=== PATIENT | male | born 1960 | race Caucasian/White ===

== ENCOUNTER 2017-05-03 08:00 | Outpatient (CLI) | payer BC | END 2017-05-03 08:01 | disposition home or self-care (01) | LOC: LAB.F 08:00 | PROVIDERS: ATTEND Internal Medicine | DX: E03.9 Hypothyroidism, unspecified (principal) | CPT/HCPCS: 36415; 84443 ==

== ENCOUNTER 2017-07-04 08:23 | Outpatient (CLI) | payer BC | END 2017-07-04 08:24 | disposition home or self-care (01) | LOC: LAB.F 08:23 | PROVIDERS: ATTEND Internal Medicine | DX: E03.9 Hypothyroidism, unspecified (principal) | CPT/HCPCS: 36415; 84443 ==

== ENCOUNTER 2018-04-05 07:19 | Outpatient (CLI) | payer BC ==
[2018-04-05 11:49] LABS: BASOPHILS # (AUTO) 0.1 10^3/uL (0.0-0.1); BASOPHILS % (AUTO) 0.8 %; EOSINOPHILS # (AUTO) 0.2 10^3/uL (0.0-0.7); EOSINOPHILS % (AUTO) 3.2 %; HGB - HEMOGLOBIN 14.2 g/dL (14.0-18.0); LYMPHOCYTES # (AUTO) 2.1 10^3/uL (1.5-3.5); LYMPHOCYTES % (AUTO) 29.2 %; MEAN CORPUSCULAR HEMOGLOBIN 30.3 pg (27.0-31.0); MEAN CORPUSCULAR HGB CONC 32.9 g/dL (32.0-36.0); MEAN CORPUSCULAR VOLUME 92.1 fL (80.0-94.0); MEAN PLATELET VOLUME 10.1 fL (7.4-11.4); MONOCYTES # (AUTO) 0.8 10^3/uL (0.0-1.0); MONOCYTES % (AUTO) 10.9 %; NEUTROPHILS % (AUTO) 55.9 %; PLT - PLATELET COUNT 228 10^3/uL (130-450); RED BLOOD COUNT 4.67 10^6/uL (4.70-6.10); RED CELL DISTRIBUTION WIDTH 13.7 % (12.0-15.0); WHITE BLOOD COUNT 7.2 x10^3/uL (4.8-10.8)
[2018-04-05 12:14] LABS: ALBUMIN 3.8 g/dL (3.2-5.5); ALBUMIN/GLOBULIN RATIO 1.2 (1.0-2.2); ALKALINE PHOSPHATASE 47 IU/L (42-121); ALT ALANINE AMINOTRANSFERASE 23 IU/L (10-60); AST ASPARTATE AMINOTRANSFERASE 24 IU/L (10-42); BILIRUBIN,TOTAL 0.8 mg/dL (0.2-1.0); BUN - BLOOD UREA NITROGEN 21 mg/dL (6-20); CALCIUM 8.9 mg/dL (8.5-10.3); CARBON DIOXIDE - CO2 25 mmol/L (21-32); CHLORIDE 105 mmol/L (101-111); CHOL/HDL RATIO 4.2 (<5.0); CHOLESTEROL 226 mg/dL; CREATININE 0.9 mg/dL (0.6-1.2); GFR - MDRD 86 (>89); GLUCOSE 96 mg/dL (70-100); HDL CHOLESTEROL 54 mg/dL; LDL CHOLESTEROL,CALCULATED 157 mg/dL; LDL/HDL RATIO 2.9 (<3.6); SODIUM 134 mmol/L (135-145); TOTAL PROTEIN 6.9 g/dL (6.7-8.2); VLDL CHOLESTEROL 15 mg/dL
== END 2018-04-05 07:20 | disposition home or self-care (01) ==
LOC: LAB.F 07:19
PROVIDERS: ATTEND Internal Medicine
DX: E03.9 Hypothyroidism, unspecified (principal); E78.00 Pure hypercholesterolemia, unspecified; R97.20 Elevated prostate specific antigen [PSA]
CPT/HCPCS: 36415; 80053; 80061; 83721; 84153; 84443; 85025

== ENCOUNTER 2019-04-13 18:35 | Emergency (ER) | payer BC ==
[2019-04-13 18:43] VITALS: BP 144/78
--- NOTE | 2019-04-13 19:15 | ED Physician Documentation ---
PD HPI UPPER EXT INJURY - Stated complaint Stated Complaint: L FINGER INJ - Chief complaint Chief Complaint: Ext Problem - History obtained from History obtained from: Patient - History of Present Illness Location: Left (He was [place] running about an hour ago and slipped and impacted his left hand into a tree and has pain of the left fifth finger. No other injuries.) Review of Systems Constitutional: reports: Reviewed and negative Nose: reports: Reviewed and negative Throat: reports: Reviewed and negative PD PAST MEDICAL HISTORY - Past Medical History Endocrine/Autoimmune: HyPOthyroidism - Allergies Allergies/Adverse Reactions: Allergies Allergy/AdvReac Type Severity Reaction Status Date / Time No Known Drug Allergies Allergy Verified 04/13/19 18:42 - Social History Does the pt smoke?: No Smoking Status: Never smoker Does the pt have substance abuse?: No PD ED PE NORMAL - Vitals Vital signs reviewed: Yes - General General: Alert and oriented X 3, No acute distress - Derm Derm: Normal color, Warm and dry - Extremities Extremities: Other (TTP L 5th MT without deformity or loss of saccade) - Neuro Neuro: Alert and oriented X 3, Normal speech Results - Vitals Vitals: Vital Signs - 24 hr 04/13/19 18:37 Temperature 37.0 C Heart Rate 80 Respiratory 16 Rate Blood Pressure 144/78 H O2 Saturation 99 - Rads (name of study) L hand Radiology: EMP read contemporaneously (midshaft 5th frx) Procedures - Splint (location) L hand Splint applied by: Physician Type of splint: Fiberglass, Short arm, Ulnar gutter Other: Patient tolerated well, No complications, Neurovascular intact Departure - Departure Disposition: 01 Home, Self Care Clinical Impression: Fracture of fifth metacarpal bone of left hand Qualifiers: Encounter type: initial encounter Fracture type: closed Metacarpal location: shaft Fracture alignment: displaced Qualified Code(s): S62.327A - Displaced fracture of shaft of fifth metacarpal bone, left hand, initial encounter for closed fracture Condition: Good Record reviewed to determine appropriate education?: Yes Instructions: ED Fx Hand Closed Follow-Up: [facility] [Provider Group] - Within 1 week
--- NOTE | 2019-04-13 20:04 | XRAY Report ---
Reason: finger inj Procedure Date: 04/13/2019 Accession Number: [id number] / [id number] Procedure: XR - Finger(s) LT CPT Code: FULL RESULT: EXAM: LEFT FIFTH AND FOURTH DIGIT RADIOGRAPHY EXAM DATE: 04/13/2019 07:05 PM. CLINICAL HISTORY: Finger injury. Fall. Left hand pain and loss of range of motion to fourth and fifth digit. COMPARISON: None. TECHNIQUE: 3 views. FINDINGS: Bones: Acute oblique left fifth metatarsal diaphyseal fracture with overlap and mild medial displacement, and there appears to be moderate volar displacement of the distal fracture fragment on the lateral view but this evaluation is limited due to overlapping digits. Adjacent soft tissue swelling. No other acute fractures are seen. Small metallic density projects over the first proximal phalanx seen only on the PA view, could represent metallic foreign body versus surgical clips versus outside of the patient. Correlate clinically. Joints: No Dislocation. Moderate to severe scaphoid trapezium/trapezoid joint space narrowing with moderate sclerosis. IMPRESSION: Acute oblique left fifth metatarsal diaphyseal fracture with overlap and mild medial displacement, and there appears to be moderate volar displacement of the distal fracture fragment on the lateral view but this evaluation is limited due to overlapping digits. Adjacent soft tissue swelling. See above. RADIA
== END 2019-04-13 20:03 | disposition home or self-care (01) ==
LOC: ED 18:35
DX: S92.352A Displaced fracture of fifth metatarsal bone, left foot, initial encounter for closed fracture (principal); W22.09XA Striking against other stationary object, initial encounter; Y93.02 Activity, running
CPT/HCPCS: 29125; 73140; 99282; 99283

== ENCOUNTER 2019-11-04 08:40 | Outpatient (CLI) | payer BC ==
[2019-11-04 18:27] LABS: ALBUMIN 4.2 g/dL (3.2-5.5); ALBUMIN/GLOBULIN RATIO 1.6 (1.0-2.2); ALKALINE PHOSPHATASE 36 IU/L (42-121); ALT ALANINE AMINOTRANSFERASE 21 IU/L (10-60); AST ASPARTATE AMINOTRANSFERASE 24 IU/L (10-42); BUN - BLOOD UREA NITROGEN 19 mg/dL (6-20); CALCIUM 9.1 mg/dL (8.5-10.3); CARBON DIOXIDE - CO2 24 mmol/L (21-32); CHLORIDE 102 mmol/L (101-111); CHOL/HDL RATIO 4.8 (<5.0); CHOLESTEROL 261 mg/dL; GFR - MDRD 76 (>89); GLUCOSE 89 mg/dL (70-100); HDL CHOLESTEROL 54 mg/dL; LDL CHOLESTEROL,CALCULATED 191 mg/dL; LDL/HDL RATIO 3.5 (<3.6); SODIUM 135 mmol/L (135-145); TOTAL PROTEIN 6.9 g/dL (6.7-8.2); VLDL CHOLESTEROL 16 mg/dL
== END 2019-11-04 08:41 | disposition home or self-care (01) ==
LOC: LAB.S 08:40
PROVIDERS: ATTEND Internal Medicine
DX: E78.5 Hyperlipidemia, unspecified (principal); R97.20 Elevated prostate specific antigen [PSA]; E03.9 Hypothyroidism, unspecified
CPT/HCPCS: 36415; 80053; 80061; 83721; 84153; 84443

== ENCOUNTER 2020-04-09 07:04 | Outpatient (CLI) | payer BC ==
[2020-04-09 16:30] LABS: ALBUMIN 4.4 g/dL (3.2-5.5); ALBUMIN/GLOBULIN RATIO 1.6 (1.0-2.2); ALKALINE PHOSPHATASE 45 IU/L (42-121); ALT ALANINE AMINOTRANSFERASE 29 IU/L (10-60); AST ASPARTATE AMINOTRANSFERASE 24 IU/L (10-42); BILIRUBIN,TOTAL 0.6 mg/dL (0.2-1.0); BUN - BLOOD UREA NITROGEN 20 mg/dL (6-20); CALCIUM 8.9 mg/dL (8.5-10.3); CARBON DIOXIDE - CO2 24 mmol/L (21-32); CHLORIDE 105 mmol/L (101-111); CHOL/HDL RATIO 3.1 (<5.0); CHOLESTEROL 186 mg/dL; GLUCOSE 92 mg/dL (70-100); HDL CHOLESTEROL 60 mg/dL; LDL CHOLESTEROL,CALCULATED 109 mg/dL; LDL/HDL RATIO 1.8 (<3.6); SODIUM 136 mmol/L (135-145); TOTAL PROTEIN 7.1 g/dL (6.7-8.2); VLDL CHOLESTEROL 17 mg/dL
== END 2020-04-09 07:05 | disposition home or self-care (01) ==
LOC: LAB.S 07:04
PROVIDERS: ATTEND Internal Medicine
DX: E78.5 Hyperlipidemia, unspecified (principal)
CPT/HCPCS: 36415; 80053; 80061; 83721

== ENCOUNTER 2020-10-24 09:10 | Outpatient (CLI) | payer BC ==
[2020-10-24 15:26] LABS: BASOPHILS # (AUTO) 0.1 10^3/uL (0.0-0.1); BASOPHILS % (AUTO) 0.9 %; EOSINOPHILS # (AUTO) 0.1 10^3/uL (0.0-0.7); EOSINOPHILS % (AUTO) 1.8 %; LYMPHOCYTES % (AUTO) 26.1 %; MEAN CORPUSCULAR HEMOGLOBIN 30.3 pg (27.0-31.0); MEAN CORPUSCULAR HGB CONC 32.3 g/dL (32.0-36.0); MEAN CORPUSCULAR VOLUME 93.7 fL (80.0-94.0); MEAN PLATELET VOLUME 12.2 fL (7.4-11.4); MONOCYTES # (AUTO) 0.7 10^3/uL (0.0-1.0); MONOCYTES % (AUTO) 9.4 %; NEUTROPHILS # (AUTO) 4.8 10^3/uL (1.5-6.6); NEUTROPHILS % (AUTO) 61.5 %; PLT - PLATELET COUNT 209 10^3/uL (130-450); RED BLOOD COUNT 4.95 10^6/uL (4.70-6.10); WHITE BLOOD COUNT 7.7 x10^3/uL (4.8-10.8)
[2020-10-24 15:33] LABS: ALBUMIN 4.6 g/dL (3.2-5.5); ALBUMIN/GLOBULIN RATIO 1.6 (1.0-2.2); ALKALINE PHOSPHATASE 48 IU/L (42-121); ALT ALANINE AMINOTRANSFERASE 31 IU/L (10-60); AST ASPARTATE AMINOTRANSFERASE 26 IU/L (10-42); BUN - BLOOD UREA NITROGEN 16 mg/dL (6-20); CALCIUM 9.7 mg/dL (8.5-10.3); CARBON DIOXIDE - CO2 26 mmol/L (21-32); CHLORIDE 102 mmol/L (101-111); CHOL/HDL RATIO 3.2 (<5.0); CHOLESTEROL 207 mg/dL; CREATININE 0.9 mg/dL (0.6-1.2); GLUCOSE 89 mg/dL (70-100); HDL CHOLESTEROL 64 mg/dL; LDL CHOLESTEROL,CALCULATED 124 mg/dL; LDL/HDL RATIO 1.9 (<3.6); SODIUM 137 mmol/L (135-145); TOTAL PROTEIN 7.4 g/dL (6.7-8.2); VLDL CHOLESTEROL 19 mg/dL
[2020-10-24 16:33] LABS: FREE T4 (FREE THYROXINE) 1.23 ng/dL (0.58-1.64)
--- OUTSIDE RECORDS SUMMARY | 2020-10-28 01:50 | EXTERNAL MEDICAL SUMMARY RPT | Continuity of Care Document ---
:1960 Demographics Phone Unavailable Preferred Language Tunisian Marital Status Unknown [employer]ar[employer] Affiliation Unknown Race Unknown Ethnic Group Unknown Author Organization [facility] Address [address] [place] [address] Phone Care Team Providers Name Role Phone MD Unavailable Unavailable [place] Unavailable Unavailable FACP Unavailable Unavailable Problems date description facility 2020-09-14 00:00:00 [facility] 2020-09-14 00:00:00 Health-related behavior [facility] Primary [facility] 2020-09-14 00:00:00 Concussion without loss of [facility] consciousness, initial encounter [facility] 2020-09-14 00:00:00 Concussion [facility] 2020-09-14 00:00:00 Tobacco use and exposure [facility] 2020-09-14 00:00[facility] 2020-09-14 00:00:00 [facility] use [facility] 2020-09[facility]14 00:00:00 Tobacco [facility] 2020-09-30 00:00:00 TSH WITH REFLEX TO FT4 [facility] 2020-09-30 00:00:00 Other specified cardiac [facility] Primary Care dysrhythmias [facility] 2020-09-30 00:00:00 [facility]ostatic hypotension [facility] 2020-09-30 00:00:00 Headache [facility] 2020-09-30 00:00:00 Screening for malignant [facility] Primary [facility] neoplasms of prostate [facility] 2020-09-30 00:00:00 COMPREHENSIVE METABOLIC PANEL [facility] 2020-09-30 00:00:00 LIPIDS SCREEN [facility] 2020-09-30 00:00:00 PSA, SCREENING [facility] 2020-09-30 00:00:00 CBC W/Diff[facility]Plt [facility] 2020-09-30 00:00:00 [facility]traumatic [facility] unspecified, not intractable [facility] 2020-09-30 00:00:00 [facility], [facility] 2020-09-30 00:00:[facility]00 [facility]counter for screening for [facility] malignant neoplasm of prostate [facility] 2020-09-30 00:00:00 [facility] 2020-09-30 00:00:00 [facility] 2020-09-30 00:00:00 Syncope due to orthostatic [facility] hypotension [facility] 2020-09-30 00:00:00 Feeling down, depressed, or [facility] hopeless? [facility] 2020-09-30 00:00:00 [facility] malignant [facility] neoplasm of prostate [facility] 2020-09-30 00:00:00 [facility]cardia [facility] 2020-09-30 00:00:00 Posttraumatic headache [facility] 2020-09-30 00:00:00 Patient Health Questionnaire [facility] item (PHQ2) total score [facility] 2020-09-30 00:00:00 Tobacco smoking status NHIS [facility] 2020-10-24 09:10 HYPOTHYROIDISM, UNSPECIFIED [facility] 2020-10-24 09:10 HYPERLIPIDEMIA, UNSPECIFIED [facility] 2020-10-24 09:10 SYNCOPE AND COLLAPSE [facility] 2020-10-24 09:10 ENCOUNTER FOR SCREENING FOR [facility] MALIGNANT NEOPLASM OF PROSTATE Allergies date description facility No Known Drug Allergies [facility] Procedures date description facility 2020-09-30 00:00:00 TSH WITH REFLEX TO FT4 [facility] date description facility 2020-09-30 00:00:00 COMPREHENSIVE METABOLIC PANEL [facility] Primary [facility] date description facility 2020-09-30 00:00:00 [facility]EN [facility] date description facility 2020-09-30 00:00:00 PSA, [facility]CREENING [facility] date description facility 2020-09-30 00:00:00 CBC W/Diff/Plt [facility] date description facility 2020-09-30 00:00:00 [facility] Results Social History date description facility 2020-09-14 00:00:00 Never smoker [facility] date description facility 2020-09-30 00:00:00 Never smoker [facility] Social History date description facility 2020-09-14 00:00:00 Never smoker [facility] date description facility 2020-09-30 00:00:00 Never smoker [facility] date description facility [id number]
== END 2020-10-24 09:11 | disposition home or self-care (01) ==
LOC: LAB.S 09:10
PROVIDERS: ATTEND Internal Medicine
DX: R55 Syncope and collapse (principal); E78.5 Hyperlipidemia, unspecified; Z12.5 Encounter for screening for malignant neoplasm of prostate; E03.9 Hypothyroidism, unspecified
CPT/HCPCS: 36415; 80053; 80061; 83721; 84153; 84439; 84443; 85025

== ENCOUNTER 2020-11-19 07:46 | Outpatient (CLI) | payer BC | END 2020-11-19 07:47 | disposition home or self-care (01) | LOC: DI 07:46 | PROVIDERS: ATTEND Specialist | DX: R55 Syncope and collapse (principal); E78.49 Other hyperlipidemia | CPT/HCPCS: 93306 ==

== ENCOUNTER 2020-12-29 13:24 | Outpatient (CLI) | payer BC ==
[2020-12-29 20:33] LABS: THYROID STIMULATING HORMONE 4.93 uIU/mL (0.34-5.60)
== END 2020-12-29 13:25 | disposition home or self-care (01) ==
LOC: LAB.S 13:24
PROVIDERS: ATTEND Internal Medicine
DX: E03.9 Hypothyroidism, unspecified (principal)
CPT/HCPCS: 36415; 84443

== ENCOUNTER 2021-05-19 07:47 | Outpatient (CLI) | payer BC ==
[2021-05-19 14:56] LABS: BASOPHILS # (AUTO) 0.1 10^3/uL (0.0-0.1); BASOPHILS % (AUTO) 0.6 %; EOSINOPHILS # (AUTO) 0.2 10^3/uL (0.0-0.7); EOSINOPHILS % (AUTO) 2.3 %; HGB - HEMOGLOBIN 14.5 g/dL (14.0-18.0); LYMPHOCYTES # (AUTO) 2.6 10^3/uL (1.5-3.5); LYMPHOCYTES % (AUTO) 31.8 %; MEAN CORPUSCULAR HEMOGLOBIN 29.9 pg (27.0-31.0); MEAN CORPUSCULAR HGB CONC 32.2 g/dL (32.0-36.0); MEAN CORPUSCULAR VOLUME 92.8 fL (80.0-94.0); MEAN PLATELET VOLUME 11.7 fL (7.4-11.4); MONOCYTES # (AUTO) 0.8 10^3/uL (0.0-1.0); MONOCYTES % (AUTO) 9.6 %; NEUTROPHILS # (AUTO) 4.5 10^3/uL (1.5-6.6); NEUTROPHILS % (AUTO) 55.3 %; PLT - PLATELET COUNT 235 10^3/uL (130-450); RED BLOOD COUNT 4.85 10^6/uL (4.70-6.10); WHITE BLOOD COUNT 8.1 x10^3/uL (4.8-10.8)
[2021-05-19 15:15] LABS: ALBUMIN 4.3 g/dL (3.2-5.5); ALBUMIN/GLOBULIN RATIO 1.4 (1.0-2.2); ALKALINE PHOSPHATASE 43 IU/L (42-121); ALT ALANINE AMINOTRANSFERASE 23 IU/L (10-60); AST ASPARTATE AMINOTRANSFERASE 22 IU/L (10-42); BILIRUBIN,TOTAL 0.9 mg/dL (0.2-1.0); BUN - BLOOD UREA NITROGEN 18 mg/dL (6-20); CALCIUM 9.2 mg/dL (8.5-10.3); CARBON DIOXIDE - CO2 25 mmol/L (21-32); CHLORIDE 101 mmol/L (101-111); CHOL/HDL RATIO 3.4 (<5.0); CHOLESTEROL 192 mg/dL; CREATININE 0.8 mg/dL (0.6-1.2); GFR - MDRD 98 (>89); GLUCOSE 99 mg/dL (70-100); HDL CHOLESTEROL 57 mg/dL; LDL CHOLESTEROL,CALCULATED 118 mg/dL; LDL/HDL RATIO 2.1 (<3.6); POTASSIUM 4.2 mmol/L (3.5-5.0); SODIUM 135 mmol/L (135-145); TOTAL PROTEIN 7.3 g/dL (6.7-8.2); TRIGLYCERIDES 85 mg/dL; VLDL CHOLESTEROL 17 mg/dL
[2021-05-19 15:33] LABS: THYROID STIMULATING HORMONE 2.76 uIU/mL (0.34-5.60)
== END 2021-05-19 07:48 | disposition home or self-care (01) ==
LOC: LAB.S 07:47
PROVIDERS: ATTEND Internal Medicine
DX: E78.5 Hyperlipidemia, unspecified (principal); Z79.899 Other long term (current) drug therapy; R97.20 Elevated prostate specific antigen [PSA]; E03.9 Hypothyroidism, unspecified
CPT/HCPCS: 36415; 80053; 80061; 83721; 84153; 84443; 85025

== ENCOUNTER 2021-11-10 07:22 | Outpatient (CLI) | payer BC ==
[2021-11-10 15:00] LABS: BASOPHILS # (AUTO) 0.1 10^3/uL (0.0-0.1); BASOPHILS % (AUTO) 0.9 %; EOSINOPHILS # (AUTO) 0.2 10^3/uL (0.0-0.7); EOSINOPHILS % (AUTO) 2.9 %; HCT - HEMATOCRIT 39.4 % (42.0-52.0); LYMPHOCYTES # (AUTO) 2.6 10^3/uL (1.5-3.5); LYMPHOCYTES % (AUTO) 37.7 %; MEAN CORPUSCULAR HEMOGLOBIN 30.2 pg (27.0-31.0); MEAN CORPUSCULAR VOLUME 91.4 fL (80.0-94.0); MEAN PLATELET VOLUME 12.5 fL (7.4-11.4); MONOCYTES # (AUTO) 0.6 10^3/uL (0.0-1.0); NEUTROPHILS # (AUTO) 3.4 10^3/uL (1.5-6.6); NEUTROPHILS % (AUTO) 49.1 %; PLT - PLATELET COUNT 226 10^3/uL (130-450); RED BLOOD COUNT 4.31 10^6/uL (4.70-6.10); RED CELL DISTRIBUTION WIDTH 13.4 % (12.0-15.0); WHITE BLOOD COUNT 6.9 x10^3/uL (4.8-10.8)
[2021-11-10 15:22] LABS: ALBUMIN 3.9 g/dL (3.2-5.5); ALBUMIN/GLOBULIN RATIO 1.5 (1.0-2.2); ALKALINE PHOSPHATASE 41 IU/L (42-121); ALT ALANINE AMINOTRANSFERASE 22 IU/L (10-60); AST ASPARTATE AMINOTRANSFERASE 25 IU/L (10-42); BILIRUBIN,TOTAL 0.6 mg/dL (0.2-1.0); BUN - BLOOD UREA NITROGEN 19 mg/dL (6-20); CALCIUM 8.9 mg/dL (8.5-10.3); CARBON DIOXIDE - CO2 25 mmol/L (21-32); CHLORIDE 104 mmol/L (101-111); CHOL/HDL RATIO 2.9 (<5.0); CHOLESTEROL 168 mg/dL; CREATININE 0.8 mg/dL (0.6-1.2); GFR - MDRD 98 (>89); GLUCOSE 91 mg/dL (70-100); HDL CHOLESTEROL 58 mg/dL; LDL CHOLESTEROL,CALCULATED 101 mg/dL; LDL/HDL RATIO 1.7 (<3.6); POTASSIUM 4.5 mmol/L (3.5-5.0); SODIUM 137 mmol/L (135-145); TOTAL PROTEIN 6.5 g/dL (6.7-8.2); TRIGLYCERIDES 47 mg/dL; VLDL CHOLESTEROL 9 mg/dL
[2021-11-10 15:53] LABS: THYROID STIMULATING HORMONE 4.99 uIU/mL (0.34-5.60)
== END 2021-11-10 07:23 | disposition home or self-care (01) ==
LOC: LAB.S 07:22
PROVIDERS: ATTEND Internal Medicine
DX: E78.5 Hyperlipidemia, unspecified (principal); E03.9 Hypothyroidism, unspecified; Z79.899 Other long term (current) drug therapy
CPT/HCPCS: 36415; 80053; 80061; 83721; 84443; 85025

== ENCOUNTER 2022-02-11 07:26 | Outpatient (CLI) | payer BC ==
[2022-02-11 15:34] LABS: ALBUMIN 3.8 g/dL (3.2-5.5); ALBUMIN/GLOBULIN RATIO 1.5 (1.0-2.2); BILIRUBIN,TOTAL 0.5 mg/dL (0.2-1.0); CALCIUM 9.1 mg/dL (8.5-10.3); CREATININE 0.8 mg/dL (0.6-1.2); POTASSIUM 4.5 mmol/L (3.5-5.0); TOTAL PROTEIN 6.4 g/dL (6.7-8.2)
== END 2022-02-11 07:27 | disposition home or self-care (01) ==
LOC: LAB.S 07:26
PROVIDERS: ATTEND Internal Medicine Cardiovascular Disease
DX: E78.49 Other hyperlipidemia (principal)
CPT/HCPCS: 36415; 80053; 82550; 83704

== ENCOUNTER 2022-02-18 07:30 | Outpatient (CLI) | payer BC ==
[2022-02-22 10:55] LABS: HDL-P (TOTAL) 41.7 umol/L (>=30.5); LDL SIZE 21.7 nm (>20.5); LDL-P 816 nmol/L (<1000); LP-INSULIN RESISTANCE SCORE <25 (<=45); SMALL LDL-P 350 nmol/L (<=527)
== END 2022-02-18 07:31 | disposition home or self-care (01) ==
LOC: LAB.S 07:30
PROVIDERS: ATTEND Internal Medicine Cardiovascular Disease
DX: E78.49 Other hyperlipidemia (principal)
CPT/HCPCS: 83704

== ENCOUNTER 2022-11-16 09:13 | Outpatient (CLI) | payer BC ==
[2022-11-16 15:42] LABS: THYROID STIMULATING HORMONE 3.85 uIU/mL (0.34-5.60)
== END 2022-11-16 09:14 | disposition home or self-care (01) ==
LOC: LAB.S 09:13
PROVIDERS: ATTEND Registered Nurse
DX: E03.9 Hypothyroidism, unspecified (principal); Z12.5 Encounter for screening for malignant neoplasm of prostate
CPT/HCPCS: 36415; 84153; 84443

== ENCOUNTER 2023-06-20 08:06 | Outpatient (CLI) | payer BC ==
[2023-06-20 14:48] LABS: ALT ALANINE AMINOTRANSFERASE 20 IU/L (10-60); CHOL/HDL RATIO 2.2 (<5.0); CHOLESTEROL 148 mg/dL; HDL CHOLESTEROL 67 mg/dL; LDL CHOLESTEROL,CALCULATED 71 mg/dL; LDL/HDL RATIO 1.1 (<3.6); TRIGLYCERIDES 49 mg/dL (48-352); VLDL CHOLESTEROL 10 mg/dL
== END 2023-06-20 08:07 | disposition home or self-care (01) ==
LOC: LAB.S 08:06
PROVIDERS: ATTEND Registered Nurse
DX: R97.20 Elevated prostate specific antigen [PSA] (principal); E78.00 Pure hypercholesterolemia, unspecified; Z82.49 Family history of ischemic heart disease and other diseases of the circulatory system; I25.10 Atherosclerotic heart disease of native coronary artery without angina pectoris
CPT/HCPCS: 36415; 80061; 83721; 84153; 84460

== ENCOUNTER 2024-01-16 09:52 | Outpatient (CLI) | payer MEDICARE, BC ==
[2024-01-16 14:44] LABS: BASOPHILS # (AUTO) 0.1 10^3/uL (0.0-0.1); BASOPHILS % (AUTO) 0.7 %; EOSINOPHILS # (AUTO) 0.1 10^3/uL (0.0-0.7); EOSINOPHILS % (AUTO) 1.7 %; HCT - HEMATOCRIT 41.6 % (42.0-52.0); HGB - HEMOGLOBIN 13.6 g/dL (14.0-18.0); LYMPHOCYTES # (AUTO) 2.2 10^3/uL (1.5-3.5); LYMPHOCYTES % (AUTO) 26.6 %; MEAN CORPUSCULAR HEMOGLOBIN 29.2 pg (27.0-31.0); MEAN CORPUSCULAR HGB CONC 32.7 g/dL (32.0-36.0); MEAN CORPUSCULAR VOLUME 89.3 fL (80.0-94.0); MEAN PLATELET VOLUME 11.4 fL (7.4-11.4); MONOCYTES # (AUTO) 0.9 10^3/uL (0.0-1.0); MONOCYTES % (AUTO) 11.4 %; NEUTROPHILS # (AUTO) 4.8 10^3/uL (1.5-6.6); NEUTROPHILS % (AUTO) 59.4 %; PLT - PLATELET COUNT 265 10^3/uL (130-450); RED BLOOD COUNT 4.66 10^6/uL (4.70-6.10); RED CELL DISTRIBUTION WIDTH 13.1 % (12.0-15.0); WHITE BLOOD COUNT 8.1 x10^3/uL (4.8-10.8)
[2024-01-16 15:13] LABS: THYROID STIMULATING HORMONE 0.36 uIU/mL (0.34-5.60)
== END 2024-01-16 09:53 | disposition home or self-care (01) ==
LOC: LAB.S 09:52
PROVIDERS: ATTEND Registered Nurse
DX: R97.20 Elevated prostate specific antigen [PSA] (principal); Z13.228 Encounter for screening for other metabolic disorders; Z13.220 Encounter for screening for lipoid disorders; Z13.0 Encounter for screening for diseases of the blood and blood-forming organs and certain disorders involving the immune mechanism; Z13.29 Encounter for screening for other suspected endocrine disorder; E78.5 Hyperlipidemia, unspecified
CPT/HCPCS: 36415; 80053; 80061; 83721; 84153; 84443; 85025

== ENCOUNTER 2024-03-04 07:19 | Day surgery (SDC) | payer MEDICARE, BC ==
[2024-03-04] MEDS: LACTATED RINGERS 1,000 ML IV ONE ×2 (07:22→08:38)
[2024-03-04] MEDS ORDERED: PROPOFOL 500 MG/50 ML 500 MG/50 ML VIAL ONE (07:43)
[2024-03-04] MEDS ORDERED: ONDANSETRON 4 MG/2 ML VIAL ONE (07:49)
[2024-03-04] MEDS ORDERED: KETOROLAC 30 MG/ML VIAL ONE (07:50)
[2024-03-04] MEDS ORDERED: LIDOCAINE JELLY 2% 6 ML JEL.PF.APP ONE (08:00)
[2024-03-04] MEDS ORDERED: LIDOCAINE 2% URO-JET 5 ML SYRINGE UR ONE (08:01)
[2024-03-04] MEDS ORDERED: LIDOCAINE-MPF 1% 30 ML VIAL ONE (08:02)
--- NOTE | 2024-03-04 08:06 | ANESTHESIA ---
Pre-Anesthesia VS, & Labs - Diagnosis Elevated PSA - Procedure transrectal ultrasound biopsy of prostate Vital Signs: Temp Pulse Resp BP Pulse Ox O2 Flow Rate 36.2 C L 56 L 18 110/79 99 03/04/24 07:27 03/04/24 07:27 03/04/24 07:27 03/04/24 07:27 03/04/24 07:27 Height: 5 ft 7 in Weight (kg): 72.8 kg Body Mass Index: 25.1 BMI Classification: Overweight - NPO >8 hours Home Medications and Allergies Home Medications: Ambulatory Orders Cholecalciferol [Vitamin D3] 50 mcg PO DAILY 02/27/24 Levothyroxine Sodium [Synthroid] 137 mcg PO DAILY 02/27/24 Mv-Min/Folic/K1/Lycopen/Lutein [Centrum Silver Men Tablet] 1 each PO DAILY 02/27/24 Rosuvastatin Calcium 10 mg PO HS 02/27/24 Cholecalciferol [Vitamin D3] 50 mcg PO DAILY 02/27/24 Levothyroxine Sodium [Synthroid] 137 mcg PO DAILY 02/27/24 Mv-Min/Folic/K1/Lycopen/Lutein [Centrum Silver Men Tablet] 1 each PO DAILY 02/27/24 Rosuvastatin Calcium 10 mg PO HS 02/27/24 Allergies/Adverse Reactions: Allergies Allergy/AdvReac Type Severity Reaction Status Date / Time clarithromycin [From Biaxin] Allergy Hives Verified 02/27/24 13:05 Anes History & Medical History - Anesthetic History Anesthesia Complications: reports: No previous complications - Medical History Cardiovascular: reports: High cholesterol Pulmonary: reports: None Gastrointestinal: reports: None Urinary: reports: Benign prostate hypertrophy Neuro: reports: None Musculoskeletal: reports: None Endocrine/Autoimmune: reports: HyPOthyroidism Skin: reports: None Smoking Status: Never smoker Psychosocial: reports: Alcohol History of Cancer?: No - Surgical History General: reports: Colonoscopy Orthopedic: reports: Other Exam General: Alert, Oriented x3, Cooperative, No acute distress Dental: WNL Mouth Openin Fingerbreadth Neck Mobility: Normal Mallampati classification: II Thyromental Distance: 4-6 cm Mental/Cognitive Status: Alert/Oriented X3, Normal for patient Plan Anesthesia Type: General, Total IV Consent for Procedure(s) Verified and Reviewed: Yes Code Status: Attempt Resuscitation ASA classification: 2-Mild systemic disease Is this case an emergency?: No
--- NOTE | 2024-03-04 08:44 | Discharge Plan ---
Discharge Plan Problem Reviewed?: Yes Disposition: Home, Self Care Condition: Good Diet: Regular Activity Restrictions: No Restrictions Shower Restrictions: No Driving Restrictions: No Instruction Topics: Biopsy Ultrasound Transrectal Additional Instructions or Follow Up instructions: You have an appointment on 03/13 at 3pm, please arrive 15mins early No Smoking: If you smoke, Please STOP! Call for help. Follow-up with: Ken Mcgill MD [Provider Admit Priv/Credential] -
[2024-03-04 08:48] VITALS: BP 90/71; O2SAT 98
--- NOTE | 2024-03-04 08:49 | OPERATIVE REPORT ---
Operative Report - General Procedure Date: 03/04/24 Planned Procedure: Transrectal ultrasound guided prostate biopsy Pre-Op Diagnosis: Elevated PSA Procedure Performed: Transrectal ultrasound guided prostate biopsy Post Op Diagnosis: Elevated PSA - Procedure Note Primary Surgeon: Artem Anesthesia Provider: FAWN Cifuentes Anesthesia Technique: Moderate sedation Pathology: Routine prostate biopsy Findings: 64cc prostate Complications: none - Other Other Information/Narrative: After informed consent was obtained, the patient was brought to the OR and laid in left lateral decubitus position with the right side up. A formal timeout was performed. The transrectal ultrasound probe was placed per rectum and prostate visualized. 5cc of 1% lidocaine was placed to both lateral aspects of prostate for blockade. The prostate was measured at 64cc in size. Using an 18g needle, specimens were taken from left and right, apex mid and base, medial and lateral of the prostate. An extra core was taken from the left mid which corresponded to the PIRADS 4 lesion seen on MRI. The probe was removed, minimal blood seen. This concluded the procedure, patient was reversed from anesthesia and brought to PACU without further incident
--- NOTE | 2024-03-04 08:52 | ANESTHESIA POST OP EVALUATION ---
Anesthesia Post Eval - Post Anesthesia Eval Vitals: Last Vital Signs Temp 36.2 C L 03/04/24 08:40 Pulse 55 L 03/04/24 08:46 Resp 14 03/04/24 08:46 BP 90/71 03/04/24 08:46 Pulse Ox 98 03/04/24 08:46 O2 Flow Rate CV Function Including HR & BP: Stable Pain Control: Satisfactory Nausea & Vomiting: Negative Mental Status: Baseline Respiratory Status: Airway Patent Hydration Status: Satisfactory Anesthesia Complications: None
== END 2024-03-04 07:20 | disposition home or self-care (01) ==
LOC: SDS 07:19
PROVIDERS: ATTEND Urology
PROC: 0VB07ZX Excision of Prostate, Via Natural or Artificial Opening, Diagnostic (ICD-10-PCS; principal; 2024-03-04 08:15)
DX: R97.20 Elevated prostate specific antigen [PSA] (principal); N40.1 Benign prostatic hyperplasia with lower urinary tract symptoms; N13.8 Other obstructive and reflux uropathy; N42.9 Disorder of prostate, unspecified
CPT/HCPCS: 55700; 76942; J7120

== ENCOUNTER 2024-03-14 11:24 | Outpatient (CLI) | payer MEDICARE, BC | END 2024-03-14 11:25 | disposition critical access hospital (66) | LOC: EMS 11:24 | DX: R10.33 Periumbilical pain (principal); K59.00 Constipation, unspecified | CPT/HCPCS: A0425; A0427 ==

== ENCOUNTER 2024-03-14 12:00 | Emergency (ER) | payer MEDICARE, BC ==
--- NOTE | 2024-03-14 12:23 | ED Physician Documentation ---
PD HPI ABD PAIN - Stated complaint Stated Complaint: CONSTIPATION - Chief complaint Chief Complaint: Abd Pain - History obtained from History obtained from: Patient, Other (clinic notes) - History of Present Illness Quality: Sharp, Stabbing, Fullness/distended Location: Suprapubic, LLQ Radiation: Lower back Improved by: Position Worsened by: Moving, Position, Palpation Associated symptoms: Constipation Similar symptoms before: No diagnosis Recently seen: Clinic - Additional information Additional information: 63-year-old male presented with lower abdominal pain and constipation with increasing pain today. He was seen at the walk-in clinic and transferred to the ER via EMS due to significant pain. Patient underwent a transrectal ultrasound- guided prostate biopsy on 03/04/2024. Did well thereafter though had some blood in stool and urine as well as semen thereafter. He developed constipation last couple of days so was still passing gas until this morning when he stopped pa ssing gas, and had increased rectal pain and suprapubic pain. He tried various different stool regimens including docusate, fleets enema, digital disimpaction without relief in his symptoms. He had increasing perirectal and suprapubic tenderness this presented for care. He has not had a fever, denies any nausea or vomiting, denies any dysuria urgency or frequency. Review of Systems Constitutional: reports: Reviewed and negative Cardiac: reports: Reviewed and negative Respiratory: reports: Reviewed and negative GI: reports: Abdominal Pain, Abdominal Swelling, Constipation. denies: Nausea, Vomiting, Diarrhea, Hematemesis, Bloody / black stool : reports: Other (blood in semen) Skin: reports: Reviewed and negative Musculoskeletal: reports: Reviewed and negative Neurologic: reports: Reviewed and negative PD PAST MEDICAL HISTORY - Past Medical History Past Medical History: Yes Cardiovascular: High cholesterol Respiratory: None Neuro: None Endocrine/Autoimmune: HyPOthyroidism GI: None : Benign prostate hypertrophy HEENT: Other Psych: None Musculoskeletal: None Derm: None Other Past Medical History: erectile dysfunction - Past Surgical History Past Surgical History: Yes General: Colonoscopy Ortho: Other - Present Medications Home Medications: Ambulatory Orders Medication Instructions Recorded Confirmed Cholecalciferol [Vitamin D3] 50 mcg PO DAILY 02/27/24 03/04/24 Levothyroxine Sodium [Synthroid] 137 mcg PO DAILY 02/27/24 03/04/24 Mv-Min/Folic/K1/Lycopen/Lutein 1 each PO DAILY 02/27/24 03/04/24 [Centrum Silver Men Tablet] Rosuvastatin Calcium 10 mg PO HS 02/27/24 03/04/24 Bisacodyl Supp [Dulcolax Supp] 10 mg PA DAILY #10 supp 03/14/24 HYDROcod/ACETAM 5/325 [[place] 5/325] 1 tab PO Q8H PRN #10 tab 03/14/24 polyethylene glycoL 3350(BULK) 17 gm PO DAILY PRN #1 each 03/14/24 [Miralax] - Allergies Allergies/Adverse Reactions: Allergies Allergy/AdvReac Type Severity Reaction Status Date / Time clarithromycin [From Biaxin] Allergy Hives Verified 03/14/24 12:07 - Social History Does the pt smoke?: No Smoking Status: Never smoker Does the pt drink ETOH?: No Does the pt have substance abuse?: No PD ED PE NORMAL - Vitals Vital signs reviewed: Yes - General General: Alert and oriented X 3, No acute distress, Well developed/nourished - HEENT HEENT: Atraumatic, Moist mucous membranes - Cardiac Cardiac: RRR, No murmur - Respiratory Respiratory: No respiratory distress, Clear bilaterally - Abdomen Abdomen: Soft, Other (tender llq and suprabupic area. hypoactive Bowel tones but they are present. No distention. ) - Back Back: No CVA TTP, No spinal TTP - Derm Derm: Normal color, Warm and dry, No rash - Neuro Neuro: Alert and oriented X 3 Eye Opening: Spontaneous Motor: Obeys Commands Verbal: Oriented GCS Score: 15 Results - Vitals Vitals: Vital Signs - 24 hr 03/14/24 03/14/24 12:07 13:02 Temperature 36.7 C Heart Rate 60 62 Respiratory 12 12 Rate Blood Pressure 105/60 109/60 O2 Saturation 100 92 Oxygen O2 Source Room air - Labs Labs: Laboratory Tests 03/14/24 03/14/24 03/14/24 12:36 12:36 12:36 WBC 19.8 H RBC 4.95 Hgb 14.2 Hct 43.5 MCV 87.9 MCH 28.7 MCHC 32.6 RDW 13.3 Plt Count 226 MPV 11.1 Neut # (Auto) 17.9 H Lymph # (Auto) 0.8 L Harris # (Auto) 1.0 Eos # (Auto) 0.0 Baso # (Auto) 0.1 Absolute Nucleated RBC 0.00 Nucleated RBC % 0.0 Sodium 135 Potassium 4.1 Chloride 104 Carbon Dioxide 22 Anion Gap 9.0 BUN 20 Creatinine 0.9 Estimated GFR (MDRD) 85 L Glucose 111 H Lactic Acid 1.3 Calcium 9.2 Total Bilirubin 0.5 AST 21 ALT 21 Alkaline Phosphatase 54 Total Protein 6.5 Albumin 4.2 Globulin 2.3 Albumin/Globulin Ratio 1.8 Lipase 40 Urine Color Urine Clarity Urine pH Ur Specific [place] Urine Protein Urine Glucose (UA) Urine Ketones Urine Occult Blood Urine Nitrite Urine Bilirubin Urine Urobilinogen Ur Leukocyte Esterase Ur Microscopic Review Urine Culture Comments 03/14/24 14:41 WBC RBC Hgb Hct MCV MCH MCHC RDW Plt Count MPV Neut # (Auto) Lymph # (Auto) Harris # (Auto) Eos # (Auto) Baso # (Auto) Absolute Nucleated RBC Nucleated RBC % Sodium Potassium Chloride Carbon Dioxide Anion Gap BUN Creatinine Estimated GFR (MDRD) Glucose Lactic Acid Calcium Total Bilirubin AST ALT Alkaline Phosphatase Total Protein Albumin Globulin Albumin/Globulin Ratio Lipase Urine Color YELLOW Urine Clarity CLEAR Urine pH 7.5 Ur Specific [place] 1.010 Urine Protein NEGATIVE Urine Glucose (UA) NEGATIVE Urine Ketones 15 H Urine Occult Blood NEGATIVE Urine Nitrite NEGATIVE Urine Bilirubin NEGATIVE Urine Urobilinogen 0.2 (NORMAL) Ur Leukocyte Esterase NEGATIVE Ur Microscopic Review NOT INDICATED Urine Culture Comments NOT INDICATED - Rads (name of study) No standard instances Relevant Findings:: Final report received PD Medical Decision Making - ED course Complexity details: reviewed old records, reviewed results, re-evaluated patient, considered differential, d/w patient ED course: 63-year-old male presented with concerns about constipation as well as lower abdominal pain. He is also about 8 days post to prostate biopsy and was concerned that there may have been a issue from the biopsy causing his symptoms today. Has not had any fever, no vomiting. He is well-appearing here on physical exam, afebrile and nontoxic. His belly is soft but there is some lower abdominal tenderness. Differentials considered included constipation, obstruction, kidney stone, diverticulitis, UTI, prostatitis, prostate hematoma, among other differentials. We obtained lab work that shows a leukocytosis but otherwise stable, lactate is normal. Therefore proceeded with a CT abdomen pelvis which showed constipation but no other acute findings. His prostate is enlarged but this is known, there did not appear to be any signs of bleeding or abscess. Patient has a normal urinalysis and I think much less likely this would be prostatitis. He is feeling better after medication administered here and Is voiding without difficulty. He still not able to have a full bowel movement but has noticed some leakage around the stool. I therefore recommended that we increase his stool regimen, will give a dose of mag citrate here and then he can start MiraLAX and duplex as needed until regular bowel movements. The patient inquired about pain medication, I strongly urged him not to take any pain medication as this could worsen the constipation but patient states he would like to take it in the event that he has an increase in his pain so that he does not need to call the ambulance and can drive here instead. He was therefore given a short course of [place] to use only if absolutely necessary. He was cautioned on return cautions including fever, increasing belly pain, distention or new concerns. He does have a leukocytosis that I think is likely secondary to straining and discomfort, I do not see any signs of infection on exam today. I would recommend that he have a repeat CBC however in the next week or so to make sure it has improved. Departure - Departure Disposition: 01 Home, Self Care Clinical Impression: Constipation Qualifiers: Constipation type: unspecified constipation type Qualified Code(s): K59.00 - Constipation, unspecified Leukocytosis Qualifiers: Leukocytosis type: other Qualified Code(s): D72.828 - Other elevated white blood cell count Condition: Good Instructions: ED Constipation, ED Abdominal Pain Unkn Cause Male Prescriptions: Bisacodyl Supp [Dulcolax Supp] 10 mg PA DAILY #10 supp polyethylene glycoL 3350(BULK) [Miralax] 17 gm PO DAILY PRN #1 each PRN Reason: Constipation HYDROcod/ACETAM 5/325 [[place] 5/325] 1 tab PO Q8H PRN #10 tab PRN Reason: Pain 1-4 Comments: Dale, your CT today showed constipation but no obstruction or infection. Your labs were only notable for an elevated white blood cell count which can happen in constipation. I have given you one medication for constipation here and ordered two others to keep taking until you have regular bowel movements. Continue to try to stay well-hydrated, and avoid any narcotic medications which may cause constipation.If you develop a fever or symptoms continue to worsen, please return to the ER. I would like you to have repeat lab testing next week with your PCP to make sure your white blood cells are improving. Medication sent to [facility]. Forms: PCP List Discharge Date/Time: 03/14/24 15:00
[2024-03-14] MEDS: HYDROmorphone 1 MG/ML CARPUJECT IVP STA (12:37)
[2024-03-14 12:45] LABS: BASOPHILS # (AUTO) 0.1 10^3/uL (0.0-0.1); BASOPHILS % (AUTO) 0.3 %; EOSINOPHILS % (AUTO) 0.1 %; HCT - HEMATOCRIT 43.5 % (42.0-52.0); HGB - HEMOGLOBIN 14.2 g/dL (14.0-18.0); LYMPHOCYTES # (AUTO) 0.8 10^3/uL (1.5-3.5); MEAN CORPUSCULAR HEMOGLOBIN 28.7 pg (27.0-31.0); MEAN CORPUSCULAR HGB CONC 32.6 g/dL (32.0-36.0); MEAN CORPUSCULAR VOLUME 87.9 fL (80.0-94.0); MEAN PLATELET VOLUME 11.1 fL (7.4-11.4); NEUTROPHILS # (AUTO) 17.9 10^3/uL (1.5-6.6); NEUTROPHILS % (AUTO) 90.2 %; PLT - PLATELET COUNT 226 10^3/uL (130-450); RED BLOOD COUNT 4.95 10^6/uL (4.70-6.10); RED CELL DISTRIBUTION WIDTH 13.3 % (12.0-15.0); WHITE BLOOD COUNT 19.8 x10^3/uL (4.8-10.8)
[2024-03-14 13:05] VITALS: BP 109/60; O2SAT 92
[2024-03-14 13:07] LABS: ALBUMIN 4.2 g/dL (3.2-5.5); ALBUMIN/GLOBULIN RATIO 1.8 (1.0-2.2); BILIRUBIN,TOTAL 0.5 mg/dL (0.2-1.0); CALCIUM 9.2 mg/dL (8.5-10.3); CREATININE 0.9 mg/dL (0.6-1.3); POTASSIUM 4.1 mmol/L (3.5-4.5); TOTAL PROTEIN 6.5 g/dL (6.4-8.9)
[2024-03-14] MEDS ORDERED: iohexoL-300 100 ML VIAL ONE (13:16)
[2024-03-14] MEDS: iohexoL-300 100 ML VIAL IVP ONE (14:01)
--- NOTE | 2024-03-14 14:02 | CT Report ---
PROCEDURE: Abdomen/Pelvis W INDICATIONS: abd pain/constipation, recent prostate biopsy CONTRAST: Omni 300 100ml TECHNIQUE: After the administration of intravenous contrast, a CT scan of the abdomen and pelvis was performed. Images were recorded and evaluated at appropriate window settings. Reformats: coronal and sagittal. F or radiation dose reduction, the following was used: automated exposure control, adjustment of mA and /or kV according to patient size. COMPARISON: MR pelvis 02/03/2024 FINDINGS: Image quality: Diagnostic. Lower chest: Unremarkable. Liver: No solid mass. Gallbladder: Unremarkable. Biliary tree: No intrahepatic or extrahepatic dilation, accounting for age. Spleen: No splenomegaly. Pancreas: No pancreatic ductal dilation. Adrenals: No adrenal nodule. Kidneys and ureters: No hydronephrosis. No renal cystic lesion which requires follow up. No solid mas s. Simple left renal cysts. Stomach, bowel and peritoneum: No gastric or small bowel dilation. No abnormal wall thickening. No pa thologic free fluid. Moderate colonic stool without obstruction. Lymph nodes: No central or retroperitoneal adenopathy. Vessels: No infrarenal aortic aneurysm. Patent portal vein. PELVIS Reproductive organs: Prostate gland is enlarged with calcifications. No surrounding fluid. No hematom a. Bladder: No abnormal wall thickening, accounting for underdistention. Pelvic lymph nodes: No pelvic adenopathy by size criteria. Bones: No aggressive osseous abnormality. Other: Trace fat-containing ventral hernia. No Inguinal hernia. IMPRESSION: Prominent colonic stool without obstruction. Prostate gland is enlarged. No surrounding fluid or hematoma. Reviewed by: Celi Zurita MD on 03/14/2024 2:00 PM PDT Approved by: Celi Zurita MD on 03/14/2024 2:00 PM PDT Station ID: [id number]
[2024-03-14] MEDS: SODIUM CHLORIDE 0.9% 1,000 ML IV STA (14:27)
[2024-03-14 14:54] LABS: BILIRUBIN,URINE NEGATIVE (NEGATIVE); GLUCOSE, URINE (UA) NEGATIVE (NEGATIVE); KETONES,URINE (UA) 15 mg/dL (NEGATIVE); LEUKOCYTE ESTERASE, URINE NEGATIVE (NEGATIVE); NITRITE,URINE NEGATIVE (NEGATIVE); OCCULT BLOOD,URINE NEGATIVE (NEGATIVE); PH,URINE 7.5 PH (5.0-7.5); PROTEIN,URINE NEGATIVE (NEGATIVE); UROBILINOGEN,URINE 0.2 (NORMAL) E.U./dL (NORMAL)
[2024-03-14 14:58] LABS: CLARITY,URINE CLEAR (CLEAR)
[2024-03-14] MEDS: MAGNESIUM CITRATE 296 ML BOTTLE PO STA (15:17)
== END 2024-03-14 15:00 | disposition home or self-care (01) ==
LOC: EDUNIT# → EDSEX → ED 12:00
DX: K59.00 Constipation, unspecified (principal); D72.829 Elevated white blood cell count, unspecified; E78.00 Pure hypercholesterolemia, unspecified; E03.9 Hypothyroidism, unspecified; Z79.899 Other long term (current) drug therapy
CPT/HCPCS: 36415; 80053; 81001; 81003; 83605; 83690; 85025; 87086; 96361; 96374; 99284

== ENCOUNTER 2024-04-01 13:42 | Outpatient (CLI) | payer MEDICARE, BC ==
[2024-04-01 19:48] LABS: BASOPHILS # (AUTO) 0.1 10^3/uL (0.0-0.1); BASOPHILS % (AUTO) 0.8 %; EOSINOPHILS # (AUTO) 0.2 10^3/uL (0.0-0.7); EOSINOPHILS % (AUTO) 1.7 %; HCT - HEMATOCRIT 40.8 % (42.0-52.0); HGB - HEMOGLOBIN 13.4 g/dL (14.0-18.0); LYMPHOCYTES # (AUTO) 2.5 10^3/uL (1.5-3.5); LYMPHOCYTES % (AUTO) 26.5 %; MEAN CORPUSCULAR HEMOGLOBIN 28.7 pg (27.0-31.0); MEAN CORPUSCULAR HGB CONC 32.8 g/dL (32.0-36.0); MEAN CORPUSCULAR VOLUME 87.4 fL (80.0-94.0); MEAN PLATELET VOLUME 11.7 fL (7.4-11.4); MONOCYTES # (AUTO) 0.8 10^3/uL (0.0-1.0); MONOCYTES % (AUTO) 8.5 %; NEUTROPHILS # (AUTO) 5.9 10^3/uL (1.5-6.6); NEUTROPHILS % (AUTO) 62.2 %; PLT - PLATELET COUNT 266 10^3/uL (130-450); RED BLOOD COUNT 4.67 10^6/uL (4.70-6.10); RED CELL DISTRIBUTION WIDTH 13.9 % (12.0-15.0); WHITE BLOOD COUNT 9.4 x10^3/uL (4.8-10.8)
== END 2024-04-01 13:43 | disposition home or self-care (01) ==
LOC: LAB.S 13:42
PROVIDERS: ATTEND Registered Nurse
DX: D72.829 Elevated white blood cell count, unspecified (principal)
CPT/HCPCS: 36415; 85025

== ENCOUNTER 2024-04-04 10:13 | Outpatient (CLI) | payer MEDICARE, BC ==
[2024-04-04 15:14] LABS: BASOPHILS # (AUTO) 0.1 10^3/uL (0.0-0.1); BASOPHILS % (AUTO) 0.8 %; EOSINOPHILS # (AUTO) 0.1 10^3/uL (0.0-0.7); EOSINOPHILS % (AUTO) 1.4 %; HCT - HEMATOCRIT 41.2 % (42.0-52.0); HGB - HEMOGLOBIN 13.5 g/dL (14.0-18.0); LYMPHOCYTES # (AUTO) 2.2 10^3/uL (1.5-3.5); LYMPHOCYTES % (AUTO) 26.1 %; MEAN CORPUSCULAR HEMOGLOBIN 29.1 pg (27.0-31.0); MEAN CORPUSCULAR HGB CONC 32.8 g/dL (32.0-36.0); MEAN CORPUSCULAR VOLUME 88.8 fL (80.0-94.0); MEAN PLATELET VOLUME 11.9 fL (7.4-11.4); MONOCYTES # (AUTO) 0.9 10^3/uL (0.0-1.0); MONOCYTES % (AUTO) 11.1 %; NEUTROPHILS # (AUTO) 5.1 10^3/uL (1.5-6.6); NEUTROPHILS % (AUTO) 60.5 %; PLT - PLATELET COUNT 298 10^3/uL (130-450); RED BLOOD COUNT 4.64 10^6/uL (4.70-6.10); RED CELL DISTRIBUTION WIDTH 14.3 % (12.0-15.0); WHITE BLOOD COUNT 8.4 x10^3/uL (4.8-10.8)
== END 2024-04-04 10:14 | disposition home or self-care (01) ==
LOC: LAB.S 10:13
PROVIDERS: ATTEND Registered Nurse
DX: D72.829 Elevated white blood cell count, unspecified (principal)
CPT/HCPCS: 36415; 85025

== ENCOUNTER 2024-06-25 07:51 | Outpatient (CLI) | payer MEDICARE, BC ==
[2024-06-25 08:16] LABS: BASOPHILS # (AUTO) 0.1 10^3/uL (0.0-0.1); BASOPHILS % (AUTO) 0.7 %; EOSINOPHILS # (AUTO) 0.2 10^3/uL (0.0-0.7); HCT - HEMATOCRIT 43.2 % (42.0-52.0); HGB - HEMOGLOBIN 14.1 g/dL (14.0-18.0); LYMPHOCYTES # (AUTO) 2.2 10^3/uL (1.5-3.5); LYMPHOCYTES % (AUTO) 26.4 %; MEAN CORPUSCULAR HEMOGLOBIN 28.8 pg (27.0-31.0); MEAN CORPUSCULAR HGB CONC 32.6 g/dL (32.0-36.0); MEAN CORPUSCULAR VOLUME 88.3 fL (80.0-94.0); MEAN PLATELET VOLUME 10.5 fL (7.4-11.4); MONOCYTES # (AUTO) 0.9 10^3/uL (0.0-1.0); MONOCYTES % (AUTO) 10.1 %; NEUTROPHILS # (AUTO) 5.1 10^3/uL (1.5-6.6); NEUTROPHILS % (AUTO) 60.4 %; PLT - PLATELET COUNT 271 10^3/uL (130-450); RED BLOOD COUNT 4.89 10^6/uL (4.70-6.10); RED CELL DISTRIBUTION WIDTH 13.4 % (12.0-15.0); WHITE BLOOD COUNT 8.4 x10^3/uL (4.8-10.8)
[2024-06-25 08:35] LABS: ALBUMIN 4.3 g/dL (3.2-5.5); ALBUMIN/GLOBULIN RATIO 1.8 (1.0-2.2); ALKALINE PHOSPHATASE 49 IU/L (42-121); ALT ALANINE AMINOTRANSFERASE 23 IU/L (10-60); AST ASPARTATE AMINOTRANSFERASE 19 IU/L (10-42); BILIRUBIN,TOTAL 0.6 mg/dL (0.2-1.0); BUN - BLOOD UREA NITROGEN 17 mg/dL (6-20); CALCIUM 9.5 mg/dL (8.5-10.3); CARBON DIOXIDE - CO2 26 mmol/L (21-32); CHLORIDE 105 mmol/L (101-111); CHOL/HDL RATIO 2.7 (<5.0); CHOLESTEROL 162 mg/dL; CREATININE 0.9 mg/dL (0.6-1.3); GFR - MDRD 85 (>89); GLUCOSE 94 mg/dL (74-104); HDL CHOLESTEROL 61 mg/dL; LDL CHOLESTEROL,CALCULATED 86 mg/dL; LDL/HDL RATIO 1.4 (<3.6); POTASSIUM 4.4 mmol/L (3.5-4.5); SODIUM 136 mmol/L (135-145); TOTAL PROTEIN 6.7 g/dL (6.4-8.9); TRIGLYCERIDES 74 mg/dL; VLDL CHOLESTEROL 15 mg/dL
[2024-06-25 08:48] LABS: THYROID STIMULATING HORMONE 1.32 uIU/mL (0.34-5.60)
== END 2024-06-25 07:52 | disposition home or self-care (01) ==
LOC: LAB 07:51
PROVIDERS: ATTEND Registered Nurse
DX: R97.20 Elevated prostate specific antigen [PSA] (principal); Z13.228 Encounter for screening for other metabolic disorders; Z13.220 Encounter for screening for lipoid disorders; Z13.29 Encounter for screening for other suspected endocrine disorder; Z13.0 Encounter for screening for diseases of the blood and blood-forming organs and certain disorders involving the immune mechanism
CPT/HCPCS: 36415; 80053; 80061; 83721; 84153; 84443; 85025